=== PATIENT | male | born 1985 | race Hispanic/Latino ===

== ENCOUNTER 2016-08-31 19:29 | Emergency (ER) | payer SELFPAY ==
[2016-08-31] MEDS ORDERED: NORCO 5/325 ONE (19:43)
[2016-08-31] MEDS ORDERED: ATIVAN ONE (19:43)
[2016-08-31] MEDS ORDERED: ATIVAN PO ONE (19:47)
[2016-08-31] MEDS ORDERED: NORCO 5/325 PO ONE (19:47)
--- NOTE | 2016-08-31 20:48 | XRay Report ---
FINAL REPORT EXAM: XR WRIST 3+V RT HISTORY: laceration rt wrist, pain, send for report TECHNIQUE: Three views of the right wrist PRIORS: None. FINDINGS: The bones are normally aligned and mineralized. The joint spaces are well-preserved. There is no evidence of acute fracture. The soft tissues are unremarkable. IMPRESSION: No evidence of acute fracture or subluxation.
[2016-08-31] MEDS ORDERED: BOOSTRIX IM ONE (21:29)
[2016-08-31] MEDS ORDERED: XYLOCAINE 2% INFILTRATI ONE (22:07)
[2016-08-31] MEDS ORDERED: XYLOCAINE 1% 20 mL ONE (22:08)
[2016-08-31] MEDS ORDERED: XYLOCAINE 1% 20 mL INFILTRATI ONE (22:40)
[2016-08-31 22:49] VITALS: BP 129/64
--- NOTE | 2016-09-01 00:17 | Emergency Department Report ---
- General Chief Complaint: Wound/Laceration Stated Complaint: LACERATION RIGHT WRIST Time Seen by Provider: 08/31/16 22:04 Source: patient, EMS Mode of arrival: Ambulatory Limitations: No Limitations - History of Present Illness -: Sudden Location: other Extremity Location: Right: Wrist (right) Place: work Patient Tetanus UTD: No Context: accidental Associated Symptoms: pain Treatments Prior to Arrival: other - Related Data Previous Rx's Medication Instructions Recorded Last Taken Type Sulfamethoxazole/Trimethoprim 1 each PO BID #20 tablet 09/01/16 Unknown Rx [Bactrim DS TAB] traMADol [Ultram] 50 mg PO Q6HR PRN #14 tablet 09/01/16 Unknown Rx Allergies Allergy/AdvReac Type Severity Reaction Status Date / Time coconut oil Allergy Hives Verified 10/12/15 02:17 methylphenidate HCl Allergy Unknown Verified 10/12/15 02:17 [From Ritalin] ED Review of Systems ROS: Stated complaint: LACERATION RIGHT WRIST Other details as noted in HPI Comment: All other systems reviewed and negative Constitutional: no symptoms reported Skin: other (laceration right wrist area) ED Past Medical Hx - Past Medical History Previous Medical History?: Yes Hx Psychiatric Treatment: Yes (ANXIETY) - Surgical History Past Surgical History?: No - Family History Family history: hypertension - Social History Smoking Status: Current Every Day Smoker Substance Use Type: None - Medications Home Medications: Home Medications Medication Instructions Recorded Confirmed Last Taken Type Sulfamethoxazole/Trimethoprim 1 each PO BID #20 tablet 09/01/16 Unknown Rx [Bactrim DS TAB] traMADol [Ultram] 50 mg PO Q6HR PRN #14 tablet 09/01/16 Unknown Rx ED Physical Exam - General Limitations: No Limitations General appearance: alert, in no apparent distress - Head Head exam: Present: atraumatic - Eye Eye exam: Present: normal appearance - ENT ENT exam: Present: normal exam - Cardiovascular Cardiovascular Exam: Present: regular rate - GI/Abdominal GI/Abdominal exam: Present: soft - Extremities Exam Extremities exam: Present: other (wrists 6 cm laceration palmar area) ED Course Vital Signs 08/31/16 08/31/16 08/31/16 19:39 21:27 22:49 Temperature 98.5 F Pulse Rate 93 H 82 Respiratory 20 14 18 Rate Blood Pressure 125/84 129/64 [Right] O2 Sat by Pulse 99 99 Oximetry - Reevaluation(s) Reevaluation #1: 09/01/16 00:20 Patient is able to move fingers flexion and extension in the affected hand. He was advised to follow up with orthopedic surgery to rule out any ligamentous damage. - Laceration /Wound Repair Right Lateral Wrist Wound Length (cm): 6 Wound's Depth, Shape: superficial, into muscle Wound Explored: clean Betadine Prep?: Yes Anesthesia: 1% Lidocaine (10 mL) Wound Debrided: moderate Wound Repaired With: sutures Suture Size/Type: 4:0 Number of Sutures: 10 Layer Closure?: Yes (2) Deep Layer Suture Size/Type: 5:0, chromic Number Deep Layer Sutures: 1 Sterile Dressing Applied?: Yes Critical care attestation.: If time is entered above; I have spent that time in minutes in the direct care of this critically ill patient, excluding procedure time. ED Disposition Clinical Impression: Complicated laceration of hand Disposition: DC-01 TO HOME OR SELFCARE Is pt being admited?: No Does the pt Need Aspirin: No Condition: Stable Instructions: Laceration (ED), Wrist Injury (ED) Prescriptions: Sulfamethoxazole/Trimethoprim [Bactrim DS TAB] 1 each PO BID #20 tablet traMADol [Ultram] 50 mg PO Q6HR PRN #14 tablet PRN Reason: Pain Referrals: PRIMARY CAREMD [Primary Care Provider] - 3-5 Days JANETH PEREIRA MD [Staff Physician] - 3-5 Days
== END 2016-09-01 02:50 | disposition home or self-care (01) ==
LOC: ED 19:29
DX: S61.511A Laceration without foreign body of right wrist, initial encounter (principal); Z88.8 Allergy status to other drugs, medicaments and biological substances; Z91.018 Allergy to other foods; F41.9 Anxiety disorder, unspecified; F17.200 Nicotine dependence, unspecified, uncomplicated; W25.XXXA Contact with sharp glass, initial encounter; Y93.89 Activity, other specified; Y99.8 Other external cause status; Y92.89 Other specified places as the place of occurrence of the external cause
CPT/HCPCS: 90471; 90715